=== PATIENT | male | born 1965 | race Hispanic/Latino ===

== ENCOUNTER → 2021-03-05 | Emergency (ER) | payer SELFPAY ==
[~2021-03-05] VITALS: Ht 175.3 cm; Wt 133.8 kg
[~2021-03-05] MED LIST: BELLADONNA ALK/PHENOBARBITAL 5 ML UDC PO NR; LIDOCAINE VISC 2% SOLN 15 ML UDC PO NR; MAGNESIUM/ALUMINUM/SIMETHICONE 30 ML UDC PO NR; ONDANSETRON HCL INJ 2MG/ML 2ML 2 MG/ML VIAL IV NR; SODIUM CHLORIDE 0.9% 1000ML 1,000 ML IV STA
[2021-03-05 14:34] LABS: BASOPHILS # (AUTO) 0.1 (0.0-0.1); BASOPHILS % 0.9 % (0.0-1.0); EOSINOPHILS # (AUTO) 0.1 (0.0-0.4); EOSINOPHILS % 1.9 % (0.0-6.0); HEMATOCRIT 45.9 % (38.2-49.6); HEMOGLOBIN 15.6 g/dL (14.0-18.0); LYMPHOCYTES # (AUTO) 2.2 (1.0-3.2); LYMPHOCYTES % 29.3 % (18.0-39.1); MEAN CORPUSCULAR HEMOGLOBIN 27.9 pg (28-32); MONOCYTES # (AUTO) 0.6 (0.2-0.8); MONOCYTES % 8.1 % (4.4-11.3); NEUTROPHILS # (AUTO) 4.4 (2.1-6.9); NEUTROPHILS % 59.3 % (38.7-80.0); PLATELET COUNT 391 x10e3/uL (140-360); RED CELL DISTRIBUTION WIDTH 13.2 % (11.7-14.4)
[2021-03-05 14:41] LABS: INR 1.05; PARTIAL THROMBOPLASTIN TIME 30.9 seconds (23.8-35.5); PROTHROMBIN TIME 14.3 seconds (11.9-14.5)
[2021-03-05 14:48] LABS: ALBUMIN/GLOBULIN RATIO 1.2 (0.8-2.0); ANION GAP 18.4 mmol/L (8-16); CALCIUM 9.2 mg/dL (8.4-10.2); CREATININE, SERUM 1.69 mg/dL (0.72-1.25); MAGNESIUM 1.8 MG/DL (1.3-2.1); POTASSIUM 3.4 mmol/L (3.5-5.1)
== END | disposition left against medical advice (07) ==
LOC: ER 13:59
DX: T18.128A Food in esophagus causing other injury, initial encounter (principal); R07.9 Chest pain, unspecified
CPT/HCPCS: 36415; 80053; 82550; 82553; 83735; 84484; 85025; 85379; 85610; 85730; 93005